=== PATIENT | female | born 1955 | race African-American/Black ===

== ENCOUNTER 2018-10-25 10:36 | Observation (INO) ==
[2018-10-25] MEDS ORDERED: ASPIRIN 325 MG TABLET PO STA (11:12)
[2018-10-25] MEDS ORDERED: METOPROLOL TARTRATE 5 MG/5 ML VIAL IV STA (11:20)
[2018-10-25 11:22] LABS: Basophils % 0.7 % (0.0-0.8); Eosinophils # 0.1 10*3/uL (0.0-0.87); Eosinophils % 2.3 % (0.00-10.9); Hematocrit 38.2 VOL% (35.7-47.0); Immature Granulocytes % 0.2 %; Immature Granulocytes Absolute 0.01 #; Lymphocytes # 2.2 10*3/uL (1.4-4.0); Mean Corpuscular HGB Conc 31.4 GM/DL (32-36); Mean Corpuscular Hemoglobin 28 PG (27-34); Mean Corpuscular Volume 88.2 FL (87-102); Mean Platelet Volume 9.8 FL (9.6-12.0); Monocytes # 0.5 10*3/uL (0.11-0.8); Neutrophils # 1.4 10*3/uL (1.4-7.4); Neutrophils % 33.8 % (38.7-73.9); Platelet Count 199 T/CUMM (130-400); Red Blood Count 4.33 MC/CUMM (3.8-5.5); Red Cell Distribution Width 14.5 % (9.3-17.3); White Blood Count 4.3 T/CUMM (4-12)
[2018-10-25 11:43] LABS: Alanine Aminotransferase 19 U/L (13-56); Albumin 4.2 G/DL (3.4-5.0); Alkaline Phosphatase 74 U/L (45-117); Aspartate Amino Transferase 11 U/L (0-37); Bilirubin,Total < 0.39 MG/DL (0.2-1.0); Blood Urea Nitrogen 14 MG/DL (7-18); Eosinophils 3 % (0-10); Glucose 110 MG/DL (74-106); Hypochromasia 1+; Lymphocytes 57 % (20-55); Osmolality,Calculated 278.5 MOS/KG (273-304); Platelet Estimate Adequate; Potassium 3.3 MMOL/L (3.5-5.1); Segmented Neutrophils 26 % (50-85); Sodium 139 MMOL/L (136-145); Total Cells Counted 100; Total Protein 7.9 G/DL (6.4-8.3)
[2018-10-25 11:44] LABS: Atypical Lymphocytes Few
[2018-10-25] MEDS ORDERED: NITROGLYCERIN SL 0.4 MG TABLET SL PRN (13:56)
[2018-10-25] MEDS ORDERED: GLUCAGON 1 MG VIAL IM PRN (13:56)
[2018-10-25] MEDS ORDERED: ONDANSETRON 4 MG/2 ML VIAL IV PRN (13:56)
[2018-10-25] MEDS ORDERED: DEXTROSE 50% 25 GM/50 ML VIAL IV PRN (13:56)
[2018-10-25] MEDS ORDERED: POTASSIUM CHLORIDE 20 MEQ TABLET PO STA (14:06)
[2018-10-25 14:45] LABS: Risk Ratio 4.12; VLDL CHOLESTEROL 17.4 MG/DL
[2018-10-25] MEDS: INSULIN REGULAR 100 UNIT/ML SUBCUT SCH ×2 (16:27→21:19)
[2018-10-25] MEDS ORDERED: ENOXAPARIN 40 MG/0.4 ML SYRINGE SUBCUT SCH (17:00)
[2018-10-25] MEDS ORDERED: DEXTROSE 50% 25 GM/50 ML SYRINGE IV PRN (17:00)
[2018-10-25] MEDS: metFORMIN 500 MG TABLET PO SCH (23:03)
[2018-10-26] MEDS ORDERED: PANTOPRAZOLE 40 MG TABLET PO SCH (09:00)
[2018-10-26] MEDS: INSULIN REGULAR 100 UNIT/ML SUBCUT SCH ×2 (09:36→11:58)
[2018-10-26] MEDS: metFORMIN 500 MG TABLET PO SCH (09:36)
[2018-10-26] MEDS ORDERED: GLIMEPIRIDE 2 MG TABLET PO SCH (11:00)
[2018-10-26] MEDS ORDERED: ASPIRIN EC 81 MG TABLET PO SCH (11:00)
[2018-10-26] MEDS ORDERED: amLODIPine 10 MG TABLET PO SCH (11:00)
[2018-10-26] MEDS ORDERED: ASCORBIC ACID 500 MG TABLET PO SCH (11:00)
[2018-10-26] MEDS ORDERED: VALSARTAN 160 MG TABLET PO SCH (11:00)
[2018-10-26] MEDS ORDERED: CHOLECALCIFEROL 1,000 UNIT TABLET PO SCH (11:00)
[2018-10-26] MEDS ORDERED: VALSARTAN/HCTZ 160-12.5 MG TABLET PO SCH (11:00)
[2018-10-26] MEDS ORDERED: ESCITALOPRAM 10 MG TABLET PO SCH (11:00)
[2018-10-26] MEDS ORDERED: OMEGA 3 ACID ETHYL ESTERS 1 GM CAPSULE PO SCH (11:00)
[2018-10-26] MEDS ORDERED: VITAMIN E 400 UNIT CAPSULE PO SCH (11:00)
[2018-10-26 12:39] VITALS: BP 168/110
== END 2018-10-26 14:50 | disposition home or self-care (01) ==
LOC: N.EDINP 10:36 → N.ED 10:36 → N.EDINP 15:38 → N.TELES 16:03
PROVIDERS: ADMIT Hospitalist; ATTEND Hospitalist